=== PATIENT | male | born 1985 | race Caucasian/White ===

== ENCOUNTER → 2023-01-12 | Outpatient (CLI) | payer OTHER ==
[2023-01-12 10:06] LABS: POTASSIUM 4.6 mmol/L (3.5-5.1)
[2023-01-12 10:07] LABS: CALCIUM 10.5 mg/dL (8.3-10.5)
[2023-01-12 10:09] LABS: TOTAL PROTEIN 8.1 g/dL (6.4-8.3)
[2023-01-12 10:11] LABS: TOTAL BILIRUBIN 0.7 mg/dL (0.2-1.2)
== END ==
LOC: LAB 09:44
PROVIDERS: Family Medicine
DX: Z00.00 Encounter for general adult medical examination without abnormal findings (principal); Z13.1 Encounter for screening for diabetes mellitus; Z13.220 Encounter for screening for lipoid disorders; L64.9 Androgenic alopecia, unspecified; Z72.89 Other problems related to lifestyle

== ENCOUNTER → 2024-03-18 | Outpatient (CLI) | payer OTHER | LOC: LAB 11:32 | DX: Z13.220 Encounter for screening for lipoid disorders (principal); R53.83 Other fatigue ==

== ENCOUNTER → 2024-06-11 | Outpatient (CLI) | payer OTHER | LOC: LAB 07:39 | DX: Z13.1 Encounter for screening for diabetes mellitus (principal) ==